=== PATIENT | male | born 1990 | race Caucasian/White ===

== ENCOUNTER → 2021-06-27 | Outpatient (CLI) | payer OTHER | LOC: KOH-I 15:09 | DX: M25.572 Pain in left ankle and joints of left foot (principal); M79.672 Pain in left foot | CPT/HCPCS: 73610; 73630 ==

== ENCOUNTER → 2021-07-10 | Outpatient (CLI) | payer OTHER | LOC: KOH-I 07-04 13:45 | DX: M25.572 Pain in left ankle and joints of left foot (principal); G89.29 Other chronic pain | CPT/HCPCS: 73721 ==

== ENCOUNTER → 2021-11-07 | Outpatient (CLI) | payer OTHER ==
[~2021-11-07] MED LIST: ZOLOFT50 MG PO
[2021-11-07 11:55] LABS: HEMOGLOBIN 13.9 gm/dl (14.0-17.5); RED BLOOD COUNT 3.94 M/UL (4.20-5.50); WHITE BLOOD COUNT 3.1 K/UL (4.5-11.0)
[2021-11-07 12:26] LABS: BUN/CREATININE RATIO 10 (0-10)
== END ==
LOC: OPSV2 10:56
PROVIDERS: Podiatrist Foot & Ankle Surgery
DX: Z01.812 Encounter for preprocedural laboratory examination (principal)
CPT/HCPCS: 80048; 85027